=== PATIENT | male | born 1940 | race Caucasian/White ===

== ENCOUNTER 2017-12-01 08:53 | Emergency (ER) ==
[2017-12-01] MEDS ORDERED: MORPHINE 2 MG/ML SYRINGE IVP STA ×2 (09:00→09:28)
[2017-12-01] MEDS ORDERED: ZOFRAN 4 MG/2 ML IVP STA (09:00)
[2017-12-01 09:02] VITALS: BP 167/71; TEMP 98.3; BMI 21.1
[2017-12-01] MEDS ORDERED: SODIUM CHLORIDE 1,000 ML IV STA ×2 (09:04→09:11)
--- NOTE | 2017-12-01 09:07 | ED.PDOC ---
General ED Provider: Dr. STU HEATON Chief Complaint: Back Pain Stated Complaint: Patient is a new resident at [facility] and rehabilication from another [place] few days. He started complaining of lower back pain and suprapubic abdominal pain. Has some relief after voiding but started hurting again. Time Seen by Physician: 09:04 Mode of Arrival: Ambulance Information Source: Patient, EMT Nursing and Triage Documentation Reviewed and Agree: Yes Reviewed sepsis parameters & appropriate labs ordered?: No System Inflammatory Response Syndrome: Not Applicable Sepsis Protocol: For patient's 13 years and over: Temp is 96.8 and below OR 101 and greater Pulse >90 BPM Resp >20/minute Acutely Altered Mental Status Are patient's symptoms suggestive of a new infection, such as: -Pneumonia -Skin, Soft Tissue -Endocarditis -UTI -Bone, Joint Infection -Implantable Device -Acute Abdominal Infection -Wound Infection -Meningitis -Blood Stream Catheter Infection -Unknown System Inflammatory Response Syndrome: Not Applicable Review of Systems - Review Of Systems Constitutional: Reports: No symptoms Eyes: Reports: No symptoms Ears, Nose, Mouth, Throat: Reports: No symptoms Respiratory: Reports: No symptoms Cardiac: Reports: No symptoms GI: Reports: No symptoms : Reports: Incontinence (but unable to void.) Musculoskeletal: Reports: Back pain Skin: Reports: No symptoms Neurological: Reports: Anxiety Endocrine: Reports: No symptoms Hematologic/Lymphatic: Reports: No symptoms All Other Systems: Reviewed and Negative Past Medical History - Past Medical History Endocrine: Reports: Hypothyroid Cardiovascular: Reports: Hypertension, A-Fib Respiratory: Reports: Unknown Hematological: Reports: None Gastrointestinal: Reports: GERD Genitourinary: Reports: Unknown Neuro/Psych: Reports: Depression Musculoskeletal: Reports: Back Pain Cancer: Reports: Unknown - Surgical History General Surgical History: Reports: Pacemaker - Family History Family History: Reports: Unknown - Social History Smoking Status: Unknown if ever smoked Hx Substance Use: No Alcohol Screening: None Physical Exam - Physical Exam Appearance: Ill-appearing Ill-appearing: Moderate Pain Distress: Severe Neck: Supple Respiratory: Airway patent, Breath sounds clear, Breath sounds equal, Respirations nonlabored Cardiovascular: RRR GI/: Soft, Tender Musculoskeletal: Normal strength Skin: Warm, Dry Neurological: Sensation intact, Alert, Oriented Psychiatric: Anxious Interpretation - EKG Interpretation Time of EKG #1: 09:07 Rhythm: Other (AV sequential or Dual chamber pacemaker) Interpretation: paced Re-Evaluation - Re-Evaluation Time of Re-Evaluation: 11:57 Status: Improved (but unable to place a callaway even a caude catheter. ) Vital Signs Stable: Yes Pain Level: improved. Physician Notification - Case Discussed Physician Notified: Dr. Chao Time of Notification: 11:17 (Place 18 F caude ) Physician Notified: Dr. Perez Time of Notification: 12:22 (accepted for admission.) Critical Care Note - Critical Care Note Total Time (mins): 0 Comments: Patient recent Creat at [facility] was 1.0 Course - Course Hematology/Chemistry: 12/01/17 09:10 12/01/17 09:10 Orders, Labs, Meds: Lab Review 12/01/17 12/01/17 12/01/17 09:10 09:10 09:10 WBC 11.86 H RBC 3.48 L Hgb 10.8 L Hct 32.2 L MCV 92.5 MCH 31.0 MCHC 33.5 RDW Coeff of Conner 13.2 Plt Count 224 Immature Gran % (Auto) 0.4 Neut % (Auto) 80.0 Lymph % (Auto) 6.9 L Preston % (Auto) 12.0 H Eos % (Auto) 0.5 Baso % (Auto) 0.2 Immature Gran # (Auto) 0.1 Neut # (Auto) 9.5 H Lymph # (Auto) 0.8 Preston # (Auto) 1.4 Eos # (Auto) 0.1 Baso # (Auto) 0.0 Sodium 132 L Potassium 4.4 Chloride 101 Carbon Dioxide 24 Anion Gap 11.4 BUN 42 H Creatinine 2.10 H Estimated GFR (MDRD) 31.00 BUN/Creatinine Ratio 20.00 Glucose 81 L Calcium 8.4 Total Bilirubin 0.5 AST 29 ALT 15 Alkaline Phosphatase 76 Total Creatine Kinase 208 CK-MB (CK-2) 8.4 H* CK-MB (CK-2) % 4.29603 Troponin I 0.0680 Total Protein 6.0 Albumin 3.5 Globulin 2.5 Albumin/Globulin Ratio 1.40 Amylase 92 Lipase 32 Urine Color Urine Clarity Urine pH Ur Specific [place] Urine Protein Urine Glucose (UA) Urine Ketones Urine Blood Urine Nitrite Urine Bilirubin Urine Urobilinogen Ur Leukocyte Esterase 12/01/17 10:20 WBC RBC Hgb Hct MCV MCH MCHC RDW Coeff of Conner Plt Count Immature Gran % (Auto) Neut % (Auto) Lymph % (Auto) Preston % (Auto) Eos % (Auto) Baso % (Auto) Immature Gran # (Auto) Neut # (Auto) Lymph # (Auto) Preston # (Auto) Eos # (Auto) Baso # (Auto) Sodium Potassium Chloride Carbon Dioxide Anion Gap BUN Creatinine Estimated GFR (MDRD) BUN/Creatinine Ratio Glucose Calcium Total Bilirubin AST ALT Alkaline Phosphatase Total Creatine Kinase CK-MB (CK-2) CK-MB (CK-2) % Troponin I Total Protein Albumin Globulin Albumin/Globulin Ratio Amylase Lipase Urine Color Light Urine Clarity Clear Urine pH 5.0 Ur Specific [place] <=1.005 Urine Protein Negative Urine Glucose (UA) Negative Urine Ketones Negative Urine Blood Negative Urine Nitrite Negative Urine Bilirubin Negative Urine Urobilinogen 0.2 Ur Leukocyte Esterase Negative Orders Category Date Time Status EKG-(ED ONLY) Stat CARDIO 12/01/17 09:00 Completed CATHETER INSERTION AND CARE Q8HR CARE 12/01/17 11:30 Active REMINDER: Ask MD to d/c callaway DAILY CARE 12/01/17 11:30 Active AMYLASE Stat LAB 12/01/17 09:10 Completed CBC W/ AUTO DIFF Stat LAB 12/01/17 09:10 Completed CK [CREATINE KINASE] Stat LAB 12/01/17 09:10 Completed COMPREHENSIVE METABOLIC PANEL Stat LAB 12/01/17 09:10 Completed LIPASE Stat LAB 12/01/17 09:10 Completed TROPONIN I Stat LAB 12/01/17 09:10 Completed URINALYSIS C & S IF INDICATED Stat LAB 12/01/17 10:20 Completed Lidocaine HCl [Uro-Jet] MEDS 12/01/17 11:30 Discontinued 10 ml [id number] ONCE STA Morphine Sulfate [Morphine 2 mg/ml Syringe] MEDS 12/01/17 09:00 Discontinued 2 mg IVP ONCE STA Morphine Sulfate [Morphine 2 mg/ml Syringe] MEDS 12/01/17 09:28 Discontinued 2 mg IVP ONCE STA Ondansetron HCl/Pf [Zofran 4 mg/2 ml] MEDS 12/01/17 09:00 Discontinued 4 mg IVP ONCE STA Opium/Belladonna Alkaloids [B & O Suppository] MEDS 12/01/17 11:11 Discontinued 1 supp RC ONCE STA Sodium Chloride 0.9% [Sodium Chloride] 1,000 ml MEDS 12/01/17 09:[address] ABD/PEL WO RENAL STONE PROT Stat RADS 12/01/17 09:01 Completed Medications Discontinued Medications Generic Name Dose Route Start Last Admin Trade Name Collins PRN Reason Stop Dose Admin Belladonna Alkaloids/Opium 1 supp 12/01/17 11:11 12/01/17 11:20 B & O Suppository RC 12/01/17 11:12 1 supp ONCE STA Administration Sodium Chloride 1,000 mls @ 250 mls/hr 12/01/17 09:11 12/01/17 09:15 Sodium Chloride IV 12/01/17 13:10 250 mls/hr BOLUS STA Administration Lidocaine HCl 10 ml 12/01/17 11:30 12/01/17 11:44 Uro-Jet [id number] 12/01/17 11:31 10 ml ONCE STA Administration Morphine Sulfate 2 mg 12/01/17 09:00 12/01/17 09:07 Morphine 2 Mg/Ml Syringe IVP 12/01/17 09:01 2 mg ONCE STA Administration Morphine Sulfate 2 mg 12/01/17 09:28 12/01/17 09:42 Morphine 2 Mg/Ml Syringe IVP 12/01/17 09:29 2 mg ONCE STA Administration Ondansetron HCl 4 mg 12/01/17 09:00 12/01/17 09:07 Zofran 4 Mg/2 Ml IVP 12/01/17 09:01 4 mg ONCE STA Administration Vital Signs: Temp Pulse Resp BP Pulse Ox 12/01/17 08:54 98.3 F 84 24 167/71 H 93 L Departure - Departure Time of Disposition: 11:57 Disposition: TSF SHORT-TRM HOSP Discharge Problem: Urinary obstruction, unspecified Acute renal failure Qualifiers: Acute renal failure type: unspecified Qualified Code(s): N17.9 - Acute kidney failure, unspecified Condition: Stable Pt referred to PMD for follow-up: No IPMP verified?: No Allergies/Adverse Reactions: Allergies No Known Allergies Allergy (Verified 12/01/17 09:01) Home Medications: Ambulatory Orders Acetaminophen [Mapap] 650 mg PO Q4H PRN 12/01/17 Ascorbic Acid [Vitamin C] 500 mg PO DAILY 12/01/17 Baclofen 5 mg PO QID 12/01/17 Baclofen 10 mg PO QID 12/01/17 Benzonatate [Tessalon Perles] 100 mg PO Q8H PRN 12/01/17 Carboxymethylcellulose Sodium [Refresh Celluvisc] 1 each OP BEDTIME 12/01/17 Celecoxib 200 mg PO DAILY 12/01/17 Cetirizine HCl [Zyrtec] 10 mg PO DAILY 12/01/17 Docusate Sodium [Colace] 100 mg PO BID 12/01/17 Ergocalciferol (Vitamin D2) [Vitamin D2] 50,000 unit PO MO 12/01/17 Guaifen/Dextromethorphan/PE [Tussin Cf Multi-Symptom Cold] 5 ml PO Q6H PRN 12/01 Levothyroxine Sodium [Synthroid] 25 mcg PO QDAC 12/01/17 Lisinopril [Zestril] 20 mg PO BEDTIME 12/01/17 Melatonin 5 mg PO DAILY 12/01/17 Omeprazole [Prilosec] 20 mg PO QDAC 12/01/17 Paroxetine HCl [Paxil] 20 mg PO DAILY 12/01/17 Rivaroxaban [Xarelto] 15 mg PO DAILY 12/01/17 Tamsulosin HCl [Flomax] 0.4 mg PO DAILY 12/01/17 Tramadol HCl [Ultram] 50 mg PO BID 12/01/17 Trazodone HCl 150 mg PO DAILY 12/01/17
--- NOTE | 2017-12-01 09:46 | CT ---
EXAM: CT abdomen pelvis without contrast HISTORY: Lower abdominal pain COMPARISON: None TECHNIQUE: Serial axial images of the abdomen pelvis were performed from the lung bases through the inferior pelvis without contrast. These were viewed in multiple planes. This evaluation is limited d ue to patient motion. FINDINGS: This evaluation is limited due to patient motion. Lung bases demonstrate interstitial thickening with bronchiectasis and mild bronchial wall thickening . The heart is mildly enlarged. Evaluation is limited due to lack of contrast. The liver is unremarkable. The adrenal glands are un remarkable. The kidneys demonstrate no stone or hydronephrosis with mild perinephric stranding. The spleen demonstrates calcified granulomas. Pancreas is normal. The stomach is unremarkable. Small bowel in the abdomen pelvis is unremarkable. The there is diverticulosis without diverticuliti s. There is no evidence of appendicitis. There is mild atherosclerotic disease. Prostate is normal. The osseous structures demonstrate multilevel degenerative disease of the spine and rightward scoli osis. IMPRESSION: 1. Evaluation is limited due to motion artifact. No acute intra-abdominal or pelvic process is iden tified. 2. Diverticulosis without diverticulitis. 3. 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 4. Bilateral lower lobe bronchiectasis and changes of chronic obstructive pulmonary disease.
[2017-12-01] MEDS ORDERED: B & O SUPPOSITORY RC STA (11:11)
[2017-12-01] MEDS ORDERED: URO-JET MUCOUSMEMB STA (11:30)
== END 2017-12-01 12:26 | disposition short-term general hospital (02) ==
LOC: ED 08:53
DX: N17.9 Acute kidney failure, unspecified (principal); N13.9 Obstructive and reflux uropathy, unspecified; E03.9 Hypothyroidism, unspecified; I10 Essential (primary) hypertension; Z95.0 Presence of cardiac pacemaker; Z79.899 Other long term (current) drug therapy; R41.0 Disorientation, unspecified; M54.9 Dorsalgia, unspecified; I48.91 Unspecified atrial fibrillation
CPT/HCPCS: 36415; 51798; 74176; 80053; 81001; 82150; 82550; 82553; 83690; 84484; 85025; 93005; 93010; 96361; 96374; 96375; 96376; 99285

== ENCOUNTER 2017-12-15 19:50 | Outpatient (CLI) | END 2017-12-15 19:51 | disposition short-term general hospital (02) | LOC: AMBL 19:50 | PROVIDERS: ATTEND Internal Medicine Geriatric Medicine | DX: R41.0 Disorientation, unspecified (principal); R31.9 Hematuria, unspecified; Z96.0 Presence of urogenital implants ==

== ENCOUNTER 2017-12-22 14:45 | Outpatient (CLI) | END 2017-12-22 14:46 | disposition short-term general hospital (02) | LOC: AMBL 14:45 | PROVIDERS: ATTEND Internal Medicine | DX: R45.851 Suicidal ideations (principal); R41.0 Disorientation, unspecified; R52 Pain, unspecified; R40.2411 Glasgow coma scale score 13-15, in the field [EMT or ambulance] ==

== ENCOUNTER 2018-01-21 08:32 | Outpatient (CLI) | END 2018-01-21 08:33 | disposition home or self-care (01) | LOC: NONPT 08:32 | PROVIDERS: ATTEND Family Medicine | DX: R41.82 Altered mental status, unspecified (principal) | CPT/HCPCS: 80053; 81001; 85025; 87086 ==